=== PATIENT | female | born 1970 | race Caucasian/White ===

== ENCOUNTER 2021-03-08 13:49 | Emergency (ER) | payer OTHER, SELFPAY ==
--- NOTE | ~2021-03-08 | XR_ITS ---
EXAMINATION: XR chest 2V DATE: 03/08/2021 14:58 INDICATION: Cough and congestion. TECHNIQUE: Frontal and lateral views of the chest were obtained. COMPARISON: Chest 2 views 08/17/2015 FINDINGS: The chest demonstrates clear lungs without pneumonia, pleural effusion, or pneumothorax. Th e heart size is normal. There are changes of anterior fusion procedure in cervical spine. IMPRESSION: 1. No acute cardiopulmonary disease. Reviewed, dictated and finalized at location A. S EXECUTIVE
[2021-03-08 14:02] VITALS: BP 136/83; PULSE 86; RESP 16; TEMP 36.8; O2SAT 100
--- NOTE | 2021-03-08 14:45 | ED.URI ---
HPI - URI/Sore Throat General Chief Complaint: Upper Respiratory Infection Stated Complaint: Congestion,Cough History of Present Illness HPI Narrative: This a 50-year-old comes in complaining of shortness of breath, cough been going on consistently for about a week states her tested negative for Covid patient says her concern is is that it is now gone into her chest she is worried that she may have pneumonia. Patient states she has occasional body aches. Related Data Allergies Allergy/AdvReac Type Severity Reaction Status Date / Time povidone-iodine Allergy Severe RASH, Verified 03/08/21 14:06 SWELLING soap Allergy Severe RASH, Verified 03/08/21 14:06 SWELLING carbamide peroxide Allergy Unknown allergic Verified 03/08/21 14:06 medroxyprogesterone Allergy Unknown head ache Verified 03/08/21 14:06 sulconazole [Exelderm] Allergy Unknown allergic Verified 03/08/21 14:06 Review of Systems Review of Systems: Complains of headache, sore throat, and some nausea and shortness of breath PMFSH Past Medical History Medical History Abnormal colonoscopy 2019 sessile, serrated polyp ( michael) Family History Family History Mother Family history of glaucoma Family history of elevated blood lipids Acute myocardial infarction Father Hypertension Malignant neoplasm of prostate Grandparent Malignant neoplasm of prostate Family history of malignant neoplasm of breast Social History Social History Smoking status: Never smoker Alcohol intake: current Comments At time as signature, I have reviewed and agree with nursing past medical, social, surgical and family history. Please see nursing chart for further information. There is no relevant family history pertinent to the presenting complaint. Exam Narrative: GENERAL:Well-appearing, well-nourished, and in no acute distress. HEAD:Normocephalic, atraumatic. EYES: PERRLA . ENT: Nares clear, no rhinorrhea or epistaxis. Mucous membranes moist. Fluid noted behind right ear pharyngeal drainage CHEST: Clear to slightly diminished in lower lobes auscultation HEART: Regular rate and rhythm. No murmur heard. Normal peripheral pulses. EXTREMITIES: Normal range of motion. No edema. SKIN: Warm, dry, no rash. NEURO: No focal deficits. Alert and oriented x3. Course Course Emergency Course: Chest x-ray no cardiopulmonary issues noted, influenza negative, strep negative, Covid negative Vital Signs Vital signs: Vital Signs Temperature 98.2 F 03/08/21 14:02 Pulse Rate 86 03/08/21 14:02 Respiratory Rate 16 03/08/21 14:02 Blood Pressure 136/83 03/08/21 14:02 Pulse Oximetry 100 03/08/21 14:02 Temperature 98.2 F 03/08/21 14:02 Pulse Rate 86 03/08/21 14:02 Respiratory Rate 16 03/08/21 14:02 Blood Pressure 136/83 03/08/21 14:02 Pulse Oximetry 100 03/08/21 14:02 MDM - URI/Sore Throat Differential Diagnosis Differential diagnosis: Likely upper respiratory infection, croup, otitis media, sinusitis, viral infection, bronchitis, influenza and pharyngitis Lab Data Labs: Lab Results 03/08/21 Range/Units 15:05 POC SARS CoV-2 Ag Negative (Negative) Discharge Plan Discharge Clinical Impression: Upper respiratory infection Patient Disposition: Home, Self-Care Condition: Stable Instructions: Antibiotic Form, Viral Syndrome (ED) Additional Instructions: Viral illness may last between 7-12days; antibiotic is NOT recommended at this time. Recommend antihistamine such as Benadryl at night time and Claritin/Zyrtec/Ludmila during the day Also, recommend symptomatic treatment includes: rest, fluids, and increase humidity of the air at home. Recommend Acetaminophen or nonsteroidal anti-inflammatory agents (NSAIDs) as directed in the bottle to reduce fever and/pa
== END 2021-03-08 15:35 | disposition home or self-care (01) ==
PROVIDERS: Emergency Provider Nurse Practitioner Family; PCP Family Medicine
DX: J06.9 Acute upper respiratory infection, unspecified (principal); Z20.822 Contact with and (suspected) exposure to COVID-19; E78.00 Pure hypercholesterolemia, unspecified; I10 Essential (primary) hypertension; M41.9 Scoliosis, unspecified; E11.9 Type 2 diabetes mellitus without complications; E28.2 Polycystic ovarian syndrome
CPT/HCPCS: 71046; 87081; 87426; 87804; 87880; 99213; C9803; G0463

== ENCOUNTER 2025-03-30 01:39 | Day surgery (SDC) | payer BC, SELFPAY ==
[2025-03-17 08:36] VITALS: BMI 31.3
--- OUTSIDE RECORDS SUMMARY | 2025-03-30 01:42 | XMS_ITS | Clinical Summary ---
Author Organization [facility] Address [address] [place] [address] Care Team Providers Care Noodle Press Operator Name Role Phone Geetha Simons MD Primary Care Provider + Allergies Active Allergy Reactions Criticality Noted Date Comments Povidone-Iodine Rash Medium 03/13/2019 Medications atorvastatin (LIPITOR) 10 mg tablet Take 10 mg by mouth daily Active benazepril (LOTENSIN) 5 mg tablet Take 5 mg by mouth daily Active empagliflozin (JARDIANCE) 10 mg tabletIndication s:type 2 diabetes mellitus Take 10 mg by mouth daily Active metFORMIN (GLUCOPHAGE) 500 mg tablet Take 500 mg by mouth 2 (two) times a day with meals Active dulaglutide (TRULICITY) 1.5 mg/0.5 mL pen injector Inject 1.5 mg under the skin once a week Active cyanocobalamin (Vitamin B-12) 1,000 mcg tabletIndication s:Prevention of Vitamin B12 Deficiency Take 1,000 mcg by mouth daily Active Active Problems Problem Noted Date Diagnosed Date Cervical disc disorder with radiculopathy of mid-cervical region 03/13/2019 Assessment & Plan (03/13/2019 3:23 PM FLUTE GRINDER): Ms. Gay had symptoms consistent with a right C6 radiculopathy. This was not in the classic distribution. She does have corresponding nerve root compression at right greater than left at C5-6. Given her improvement, I would hold off on any intervention at this time. She has full strength in her upper extremities. I plan to see her back in six months to repeat her neurological exam and check for any subtle weakness. If she has recurrence of pain without weakness, then she could undergo injections or surgical intervention. Abnormal mammogram 11/27/2017 Encounters Date Type Department Care Team Description 03/20/2025 1:03 PM FLUTE GRINDER - 03/20/2025 11:59 PM FLUTE GRINDER Hospital Encounter [facility] [address] [place] [id number] Encounter for screening mammogram for malignant neoplasm of breast Discharge Disposition: Discharge to home or self care 03/12/2025 [address] [address] [place] [address] Referral, Self from Last 3 Months Immunizations Immunization Administration Dates Next Due Pfizer Sars-Cov-2 Bivalent Vaccination (12+ YRS) 03/02/2022 Surgical History Surgery Date Site/Laterality Comments CERVICAL FUSION 04/30/2008 - 04/29/2009 C6-7 Anterior Cervical Fusion (Isaac) SECTION 1992 & 2003 TUBAL LIGATION 04/30/2003 - 04/29/2004 HYSTERECTOMY 04/30/2015 - 04/29/2016 BREAST EXCISIONAL BIOPSY 04/30/2005 - 04/29/2006 Right fibroid cyst per patient Medical History Medical History Date Comments Fibrocystic breast disease Diabetes HTN (hypertension) History of pneumonia Acid reflux Depression Family History Medical History Relation Name Comments Hypertension Father Prostate cancer Father Family histo ry of malignant neoplasm of prostate - (Added by TW Conv) Diabetes Maternal Grandmother Stroke Maternal Grandmother Heart attack Mother Hyperlipidemia Mother Prostate cancer Paternal Grandfather Breast cancer Paternal Grandmother Diabetes Paternal Grandmother Ovarian cancer Neg Hx Pancreatic cancer Neg Hx Relation Name Status Comments Father Maternal Grandmother Mother Paternal Grandfather Paternal Grandmother Social History Tobacco Use Types Packs/Day Years Used Date Smoking Tobacco: Never Alcohol Use Standard Drinks/Week Comments Yes 0 (1 standard drink = 0.6 oz pur e alcohol) Occasional PHQ-2 Answer Date Recorded PHQ-2 Score 1 03/13/2019 Comments No Sex and Gender Information Value Date Recorded Sex Assigned at Not on file Legal Sex Female 5:32 PM FLUTE GRINDER Gender Identity Not on file Sexual Orientation Not on file 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 [employer] Not on file Not on file Not on file Obstetrics History Para Term AB IAB SAB Ectopic Multiple Livin g Live Births 2 2 Date Outcome GA Total Labor Labor/2nd/3rd Weight Sex Type Anes PTL Nohemy A1 A5 Name Clin Last Filed Vital Signs Vital Sign Reading Time Taken Comments Blood Pressure - - Pulse - - Temperature - - Respiratory Rate 12 03/13/2019 2:43 PM FLUTE GRINDER Oxygen Saturation - - Inhaled Oxygen Concentration - - Weight 90.7 kg (200 lb) 03/20/2025 1:17 PM FLUTE GRINDER Height 170.2 cm (5' 7) 03/20/2025 1:17 PM FLUTE GRINDER Body Mass Index 31.32 03/20/2025 1:17 PM FLUTE GRINDER Plan of Treatment Health Maintenance Due Date Last Done Comments Colon Cancer Screening-Colonoscopy 1968 Hepatitis C Screening 1968 Hepatitis B Screening 1986 Regular Well Visit/Exam 18-64 1986 Zoster Vaccine (1 of 2) 2018 Depression Screening 03/13/2020 03/13/2019, 03/13/20 19 Covid-19 Vaccine (3 - season) 2024 03/02/2022, 07/03/2020 Influenza Vaccine (#1) 2024 , 02/03/2020, 02/10/2019, Additional history exists Breast Cancer Screening-Mammogram 03/20/2026 03/20/2025, 03/22/2022, 05/08/2017 DTaP/Tdap/Td Vaccine (3 - Td or Tdap) 11/27/2028 11/27/2018, 03/16/2005 Pneumococcal vaccine <65 Aged Out 12/23/2020 No longer eligible based on patient's age to complete this topic Procedures Procedure Name Priority Date/Time Associated Diagnosis Comments SCREENING MAMMOGRAM BILATERAL W RADHA Schedule Routine, Read Routine (OP Routine) 03/20/2025 1:36 PM FLUTE GRINDER Encounter for screening mammogram for malignant neoplasm of breast from Last 3 Months Results * Screening Mammogram Bilateral W Radha (03/20/2025 1:36 PM FLUTE GRINDER) Anatomical Region Laterality Modality Breast Bilateral Mammography Impressions 03/23/2025 4:18 PM FLUTE GRINDER Bilateral No evidence of malignancy in either breast. OVERALL BI-RADS FINAL ASSESSMENT: 2 - Benign RECOMMENDATION: Recommend bilateral annual screening mammography. If supplemental screening is desired for heterogeneously dense breast tissue, consider breast MRI every 1-2 years. If breast MRI cannot be performed, contrast-enhanced mammography is an alternative. Narrative 03/23/2025 4:18 PM FLUTE GRINDER EXAMINATION: Screening Mammogram Bilateral W Radha: 03/20/2025 COMPARISON: Relevant prior studies available at the time of interpretation were reviewed, including the most recent mammogram on: 03/22/2022. TECHNIQUE: Mammography was performed with 2D and 3D digital breast tomosynthesis (DBT) images. CAD was utilized. BREAST PARENCHYMAL COMPOSITION: The breasts are heterogeneously dense, which may obscure small masses. FINDINGS: Bilateral There is no suspicious mass, calcification, or architectural distortion in either breast. There are no significant changes from the prior study. us Josesito Simons MD IMG MAMMO PROCEDURES [place] [facility] Result from Last 3 Months Insurance [facility] REPLACED BY [facility] REPLACED BY [facility] Care Teams Noodle Press Operator Relationship Specialty Start Date End Date Geetha Simons MD PCP - General 05/24/17
[2025-03-30 08:54] VITALS: BP 115/78; PULSE 81; RESP 16; TEMP 36.2; O2SAT 98
[2025-03-30] MEDS: LACTATED RINGERS 1,000 ML 150 ML IV CONT (09:08)
--- NOTE | 2025-03-30 09:22 | WPDANESEPPF ---
Anes - Initial Pre Proc Eval Procedure: Operation Date: 03/30/25 10:00 Proposed Procedures p Screening Colonoscopy - Shaan Philip DO Date/Time: 03/30/25 09:22 Surgeon: Shaan Philip DO Pre Op Diagnosis: Neoplasm screening Patient Data Age: 54 Gender: F Height: 1.7 m Weight: 90.9 kg Last Vital Signs Temp 36.2 C L 03/30/25 08:54 Pulse 81 03/30/25 08:54 Resp 16 03/30/25 08:54 BP 115/78 03/30/25 08:54 Pulse Ox 98 03/30/25 08:54 O2 Del Method Room Air 03/30/25 08:54 Allergies Allergy/AdvReac Type Severity Reaction Status Date / Time povidone-iodine Allergy Severe RASH, Verified 03/30/25 08:52 SWELLING carbamide peroxide Allergy Unknown allergic Verified 03/30/25 08:52 medroxyprogesterone Allergy Unknown head ache Verified 03/30/25 08:52 Home Medications ?Medication ?Instructions ?Recorded ?Confirmed ?Type flash glucose scanning reader #1 ea 02/27/22 03/17/25 Rx (FreeStyle Santi 14 Day [place]) blood-glucose sensor (FreeStyle #1 ea 08/24/23 03/17/25 Rx Santi 3 Sensor device) empagliflozin 25 mg tablet 25 mg PO DAILY #90 tabs 07/24/24 03/30/25 Rx (Jardiance) atorvastatin 10 mg tablet 10 mg PO DAILY #90 tabs 11/12/24 03/30/25 Rx benazepril 5 mg tablet See Rx Instructions .Route 11/12/24 03/30/25 Rx .COMPLEX #90 tabs metformin 500 mg tablet,extended 1,000 mg PO DAILY 11/12/24 03/30/25 History release 24 hr blood-glucose sensor (FreeStyle #6 ea 11/21/24 03/17/25 Rx Santi 3 Plus Sensor device) escitalopram oxalate 20 mg tablet 20 mg PO DAILY #90 tabs 01/13/25 03/30/25 Rx Laboratory Tests 03/30/25 09:05 POC Capillary Glucose 193 H mg/dl (65-105) Patient hx anesthesia problems: none Family hx anesthesia problems: none Results Review: All pre-operative results and documents have been reviewed as part of the pre-operative evaluation. [facility] Past Medical History Medical History (Updated 03/30/25 @ 07:52 by Alvarez Chakraborty DO) Polycystic ovarian syndrome Diabetes mellitus, without long-term current use of insulin Mixed hyperlipidemia Essential hypertension Pain of left breast Metacarpophalangeal joint pain Abnormal colonoscopy 2019 sessile, serrated polyp ( michael) Family History Family History Mother Family history of glaucoma Family history of elevated blood lipids Acute myocardial infarction Alzheimer disease Father Hypertension Malignant neoplasm of prostate Grandparent Malignant neoplasm of prostate Family history of malignant neoplasm of breast Social History Social History (Updated 11/12/24 @ 13:10 by Marcy Lowry MA) Social History: Caffeine- coffee daily Smoking status: Never smoker Alcohol intake: never Alcohol use details: occasionally Substance use: current Substance use type: marijuana Other substance usage details: once a week Lack of Transportation: No Lack of Food: Never True Current Housing: I Have Housing Concerned About Future Housing: No Difficulty Paying Gas/Electric Bills: No Difficulty Paying for Meds: No Currently Unemployed: No Education: Associate Degree Difficulty w/ Childcare or Family Care: No Living arrangements: with family Spiritual care concerns: No Anes - Eval Final PreProcedure Day of Procedure 03/30/25 09:22 Patient weight: obese Heart: regular rate and rhythm Lungs: clear to auscultation Airway: Mallampati scale class II Neurological: alert and oriented Last oral intake: >/= 8 hours ASA classification: III Emergent: no Anesthetic plan: proceed Anesthesia type and monitoring: general GIVS and standard monitoring Results Review: All pre-operative results and documents have been reviewed as part of the pre-operative evaluation. Informed Consent: The patient's anesthetic plan and its attendant risks and benefits were discussed with the patient/family/POA. Questions were solicited and answers provided to the satisfaction of the patient/family/POA.
--- NOTE | 2025-03-30 09:32 | PM.IMHP2 ---
H&P: HPI History of Present Illness Date/Time: 03/30/25 09:32 Chief Complaint: History of colon polyps Narrative: this is a 54-year-old woman presents for colonoscopy. Her last colonoscopy was 6 years ago and a polyp was removed and tattooed. She denies any hematochezia or melena. She denies family history of colon cancer. Review of Systems Review of Systems: All systems reviewed & are unremarkable except as noted in HPI and below Constitutional: Constitutional: Denies chills, Denies fever(s), Denies headache(s) and Denies weight loss Eyes: Eyes: Denies change in vision ENT: Denies dizziness, Denies headache(s), Denies neck mass and Denies throat swelling Cardiovascular: Cardiovascular: Denies chest pain, Denies lightheadedness and Denies dyspnea Respiratory: Respiratory: Denies cough, Denies dyspnea and Denies wheezing Gastrointestinal: Gastrointestinal: Denies abdominal pain, Denies change in bowel habits, Denies nausea and Denies vomiting Genitourinary: Genitourinary: Denies hematuria and Denies dysuria Musculoskeletal: Musculoskeletal: Reports as per HPI Integumentary/Breasts: Skin/Breast: Reports as per HPI Neurologic: Denies dizziness and Denies headache(s) Allergic/Immunologic: Allergic/Immunologic: Denies throat swelling and Denies wheezing [facility] Past Medical History Medical History (Updated 03/30/25 @ 07:52 by Alvarez Chakraborty DO) Polycystic ovarian syndrome Diabetes mellitus, without long-term current use of insulin Mixed hyperlipidemia Essential hypertension Pain of left breast Metacarpophalangeal joint pain Abnormal colonoscopy 2019 sessile, serrated polyp ( michael) Family History Family History Mother Family history of glaucoma Family history of elevated blood lipids Acute myocardial infarction Alzheimer disease Father Hypertension Malignant neoplasm of prostate Grandparent Malignant neoplasm of prostate Family history of malignant neoplasm of breast Social History Social History (Updated 11/12/24 @ 13:10 by Marcy Lowry MA) Social History: Caffeine- coffee daily Smoking status: Never smoker Alcohol intake: never Alcohol use details: occasionally Substance use: current Substance use type: marijuana Other substance usage details: once a week Lack of Transportation: No Lack of Food: Never True Current Housing: I Have Housing Concerned About Future Housing: No Difficulty Paying Gas/Electric Bills: No Difficulty Paying for Meds: No Currently Unemployed: No Education: Associate Degree Difficulty w/ Childcare or Family Care: No Living arrangements: with family Spiritual care concerns: No Meds Home Medications and Allergies Home Medications ?Medication ?Instructions ?Recorded ?Confirmed ?Type flash glucose scanning reader #1 ea 02/27/22 03/17/25 Rx (FreeStyle Santi 14 Day [place]) blood-glucose sensor (FreeStyle #1 ea 08/24/23 03/17/25 Rx Santi 3 Sensor device) empagliflozin 25 mg tablet 25 mg PO DAILY #90 tabs 07/24/24 03/30/25 Rx (Jardiance) atorvastatin 10 mg tablet 10 mg PO DAILY #90 tabs 11/12/24 03/30/25 Rx benazepril 5 mg tablet See Rx Instructions .Route 11/12/24 03/30/25 Rx .COMPLEX #90 tabs metformin 500 mg tablet,extended 1,000 mg PO DAILY 11/12/24 03/30/25 History release 24 hr blood-glucose sensor (FreeStyle #6 ea 11/21/24 03/17/25 Rx Santi 3 Plus Sensor device) escitalopram oxalate 20 mg tablet 20 mg PO DAILY #90 tabs 01/13/25 03/30/25 Rx Allergies Allergy/AdvReac Type Severity Reaction Status Date / Time povidone-iodine Allergy Severe RASH, Verified 03/30/25 08:52 SWELLING carbamide peroxide Allergy Unknown allergic Verified 03/30/25 08:52 medroxyprogesterone Allergy Unknown head ache Verified 03/30/25 08:52 Vital Signs Vital Signs - 24 hr 03/30/25 08:54 Temperature 97.1 F L Pulse Rate 81 Respiratory Rate 16 Blood Pressure 115/78 Pulse Oximetry 98 Oxygen Delivery Room Air Exam Const: General: no acute distress and alert Orientation/consciousness: patient oriented x3 HENMT: Head: normocephalic and atraumatic Ears: hearing grossly normal bilaterally Face/Nose/Sinus: Normal nares present Mouth: Yes Normal oral and palatal mucosa present Eyes: Periorbital: periorbital findings normal Sclera: sclerae normal EOM: EOMs intact bilaterally Neck: Neck: normal visual inspection, no lymphadenopathy and trachea midline Chest: Chest palpation & inspection: normal inspection of the chest Resp: Effort & Inspection: normal respiratory effort Auscultation: clear to auscultation bilaterally Cardio: Jugular venous distension: no JVD Rate: regular rate Rhythm: regular rhythm Heart sounds: S1 normal heart sound present and S2 normal heart sound present Peripheral pulses: Peripheral pulses 2+ throughout GI: Inspection: normal to inspection GI Palp: Yes Soft to palpation, No Tenderness to palpation present (GI), No Guarding due to palpation present (GI) and No Rebound tenderness present Percussion: Yes normal to percussion Auscultation: normal bowel sounds : General: Yes no CVA tenderness Back/Spine/Pelvis: Back: no CVA tenderness Neuro: General: patient oriented x3, no focal motor deficits and CN's II-XI intact bilaterally Cognition (Neuro): normal cognition Speech: normal speech Motor exam (neuro): 5/5 motor strength present throughout Extrem: General: capillary refill normal and no clubbing, cyanosis or edema Assessment and Plan Assessment and plan (1) Personal history of colonic polyps: Code(s): Z86.010 - Personal history of colon polyps Status: Acute Assessment and Plan: I have recommended colonoscopy. I have discussed the procedure, risks, benefits, and alternatives. Questions were answered. Patient is agreeable to proceed.
[2025-03-30 09:52] VITALS: BP 107/65; PULSE 68; RESP 16; O2SAT 100
[2025-03-30 10:02] VITALS: BP 108/70; PULSE 66; RESP 25; O2SAT 99
[2025-03-30 10:12] VITALS: BP 127/82; PULSE 68; RESP 18; O2SAT 99
== END 2025-03-30 10:19 | disposition home or self-care (01) ==
PROVIDERS: PCP Family Medicine; Visit Provider Surgery
PROC: 0DJD8ZZ Inspection of Lower Intestinal Tract, Via Natural or Artificial Opening Endoscopic (ICD-10-PCS; CPT 45378; principal; 2025-03-30 10:00)
DX: Z12.11 Encounter for screening for malignant neoplasm of colon (principal); Z86.0100 Personal history of colon polyps, unspecified; E11.9 Type 2 diabetes mellitus without complications; F12.90 Cannabis use, unspecified, uncomplicated; E66.9 Obesity, unspecified; Z68.31 Body mass index [BMI] 31.0-31.9, adult
CPT/HCPCS: 45378; 82948; J2003; J2704; J7120

== ENCOUNTER 2025-04-07 11:03 | Outpatient (CLI) | payer BC, SELFPAY ==
--- NOTE | ~2025-04-07 | XR_ITS ---
XR thoracic spine 3V Indication: Unspecified injury of lower back, fell on ice yesterday Comparison: None Findings: Mild dextroconvex scoliosis. Moderate loss of vertebral height, no fracture or subluxation. Moderate loss of disc height throughout Soft tissues unremarkable Impression: No acute abnormality. Reviewed, dictated and finalized at location P. ET INSPECTOR Impression: No acute abnormality.
--- NOTE | ~2025-04-07 | XR_ITS ---
XR lumbar spine 2-3V Indication: Low back pain, fell on ice yesterday Comparison: None Findings: Moderate loss of vertebral heights. No acute fracture. Grade 1 retrolisthesis of L2 on L3 L3 on L4. Severe loss of disc height at L3-4, L4-5 and moderate loss of disc at L5-S1 Soft tissues unremarkable Impression: No acute abnormality. Reviewed, dictated and finalized at location P. ETIZER Impression: No acute abnormality.
--- NOTE | ~2025-04-07 | XR_ITS ---
EXAMINATION: XR knee LT 3V, 04/07/2025 11:10 CADDY/CADDIE SUPERVISOR HISTORY: M25.562 - Pain in left knee COMPARISON: No comparisons available. Findings: No acute fracture or malalignment. No significant degenerative changes. Soft tissues unremarkable. Impression: No acute fracture or malalignment. Reviewed, dictated and finalized at location P. Y/CADDIE SUPERVISOR Impression: No acute fracture or malalignment.
--- NOTE | ~2025-04-07 | XR_ITS ---
XR cervical spine 4-5V Indication: Cervicalgia, fell on ice yesterday Comparison: None Findings: Anterior fixation of C6 and C7, the hardware is intact, no acute fracture. There is no subluxation with flexion and extension. Moderate loss of disc height at C7-T1. Moderate to severe loss of disc height at C5-6. Soft tissues unremarkable Impression: No acute abnormality. Reviewed, dictated and finalized at location P. HT SHIFTER Impression: No acute abnormality.
== END 2025-04-07 11:04 | disposition home or self-care (01) ==
LOC: GOSHIMG 11:05
PROVIDERS: PCP Family Medicine; Visit Provider Student in an Organized Health Care Education/Training Program
DX: M54.2 Cervicalgia (principal); M54.50 Low back pain, unspecified; S39.92XA Unspecified injury of lower back, initial encounter; W19.XXXA Unspecified fall, initial encounter; M25.562 Pain in left knee
CPT/HCPCS: 72050; 72072; 72100; 73562

== ENCOUNTER 2025-04-21 09:49 | Outpatient (CLI) | payer OTHER, SELFPAY ==
--- NOTE | ~2025-04-21 | CT_ITS ---
EXAMINATION: CT cervical spine wo con DATE: 04/21/2025 10:17 INDICATION: Neck pain. Fall on ice on April 06. TECHNIQUE: Computed tomography (CT) of the cervical spine was performed without intravenous contrast. Automated exposure control and iterative reconstruction technique were employed. The dose-length product was 246.40 mGy-cm. COMPARISON: Cervical spine radiographs 04/07/2025 FINDINGS: Bone alignment is normal. Vertebral body heights are normal. There are changes of anterior fusion procedure at C6-C7 with interbody bone graft and anterior plate and screws. There is mildly decreased disc height at C3-C4, severely decreased disc height at C5-C6, and mildly decreased disc height at C7- T1. There is multilevel facet joint osteoarthritis, severe bilaterally at C7-T1. There is multilevel uncovertebral joint osteoarthritis, severe bilaterally at C5-C6 and on the left at C3-C4. There is mild neural foraminal stenosis at multiple levels on either side. There is mild central canal stenosis at C5-C6 and C7-T1. IMPRESSION: 1. No fracture. 2. Severe cervical spondylosis. 3. Anterior fusion procedure at C6-C7. Reviewed, dictated and finalized at location E. ON LIBRARIAN
--- NOTE | ~2025-04-21 | CT_ITS ---
EXAMINATION: CT thoracic lumbar wo con DATE: 04/21/2025 10:19 INDICATION: Anesthesia of skin and low back pain post fall on ice two and a half weeks prior TECHNIQUE: Computed tomography (CT) of the thoracic and lumbar spine was performed without intravenous contrast. Automated exposure control and iterative reconstruction technique were employed. The dose-length product was 1654.88 mGy-cm. COMPARISON: Thoracic spine radiographs dated 04/07/2025 lumbar spine radiographs dated 12/13/2017 FINDINGS: THORACIC SPINE CT: 15 degrees thoracic dextrocurvature. Sagittal alignment is normal. C6-C7 anterior spinal fusion with anterior plate and screw fixation. Thoracic vertebral body heights are normal. No fracture. Moderate to severe disc height loss at T2-T3 and T3-T4, and mild to moderate left-sided predominant disc height loss at T4-T5 through T6-T7 with mild disc height loss at many of the remaining thoracic levels. Severe facet osteoarthritis on the left at T8-T9. Mild to moderate facet osteoarthritis throughout the remainder of the thoracic spine. This contributes to moderate neural from stenosis on the left at T8-T9 and mild neural from stenosis at a few additional levels on the left and right sides of the thoracic spine. There are disc bulges or disc protrusions contribute to mild central canal stenosis at T3-T4, T4-T5, T5-T6 and T7-T8. Visualized portions of the lungs are clear. No pleural effusions. Paravertebral soft tissues are unremarkable. LUMBAR SPINE CT: 10 degrees lumbar levocurvature. Sagittal alignment is normal. Unchanged chronic minimal anterior wedging at L3. Remaining lumbar vertebral body heights are normal. No fractures. Severe disc height loss at L4-L5 and moderate to severe right-sided prominent disc height loss at L3-L4. Mild disc height loss at L2 and L2-L3. There are disc bulges at each of the lumbar levels. This along with some hypertrophy of the ligamentum flavum contributes to mild to moderate central canal stenosis at L2-L3 and L3-L4 with mild neural from stenosis at L1-L2 and L4-L5. There is multilevel moderate to severe lumbar facet osteoarthritis at the entrance to moderate neural foraminal stenosis on the right at and L3-L4 and L4- L5 and, mild to moderate bilateral neural foraminal stenosis at and L1-L2 and L2-L3 and mild neural foraminal stenosis on the right at L5-S1. Paravertebral soft tissues are unremarkable. 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 IMPRESSION: 1. 15 degrees thoracic dextroscoliosis with moderate to severe midthoracic spondylosis. 2. 10 degrees lumbar levocurvature with severe lower lumbar spondylosis. Reviewed, dictated and finalized at location A. PUSHER IMPRESSION: 1. 15 degrees thoracic dextroscoliosis with moderate to severe midthoracic spon dylosis. 2. 10 degrees lumbar levocurvature with severe lower lumbar spondylosis.
== END 2025-04-21 09:50 | disposition home or self-care (01) ==
LOC: MICIMG 09:50
PROVIDERS: PCP Family Medicine; Visit Provider Student in an Organized Health Care Education/Training Program
DX: M41.84 Other forms of scoliosis, thoracic region (principal); M47.814 Spondylosis without myelopathy or radiculopathy, thoracic region; M47.812 Spondylosis without myelopathy or radiculopathy, cervical region; Z98.1 Arthrodesis status
CPT/HCPCS: 72125; 72128; 72131